=== PATIENT | female | born 1995 | race Caucasian/White ===

== ENCOUNTER 2021-07-23 17:50 | Emergency (ER) | payer SELFPAY ==
[~2021-07-23] VITALS: Ht 175 cm; Wt 92.0 kg
--- NOTE | 2021-07-23 18:36 | ED Cough/URI ---
General Chief Complaint: Cough/Cold/Flu Symptoms Stated Complaint: HEADACH, COUGH, CONGESTION Nursing Triage Note: PT TO ED FOR COUGH, CONGESTION, AND SINUS PRESSURE THAT GOT WORSE TWO DAYS AGO. ABOUT A WEEK AGO SHE WAS GIVEN AN ANTIBIOTIC AND IT HELPED FOR A BIT BUT RECENTLY WORSENED. PT AMB. TO ROOM 10 WITHOUT DIFFICULTY. Source: patient Exam Limitations: no limitations History of Present Illness Date Seen by Provider: July 23, 2021 Time Seen by Provider: 18:34 Initial Comments Patient is a 26 year old female who presents with sinus pressure and cough for the past two days, Patient reports head pain with diffuse pressure. Associated right ear pain. She reports a wet cough without shortness of breath or wheezing. Denies taking any medication at home. Not up to date on her covid and flu vaccine. Allergies and Home Medications Patient Home Medication List Home Medication List Reviewed: Yes Amoxicillin/Potassium Clav (Amox Tr-K Clv 875-125 mg Tab) 875 Mg-125 Mg Tablet, 1 EACH PO BID Prescribed by: SILVESTRE DENT on 07/23/211924 Benzonatate (Tessalon Perles) 100 Mg Capsule, 100 MG PO TID PRN for cough Prescribed by: SILVESTRE DENT on 07/23/211924 Review of Systems Review of Systems Constitutional: No chills, No diaphoresis, No malaise, No weakness EENTM: ear pain, nose congestion; No ear discharge, No eye pain, No throat pain, No throat swelling Respiratory: cough; No short of breath Cardiovascular: No chest pain, No palpitations Gastrointestinal: No abdominal pain, No diarrhea, No nausea, No vomiting Genitourinary: No decreased output, No discharge Musculoskeletal: No gout, No joint pain Skin: No change in color All Other Systems Reviewed Negative Unless Noted: Yes Past Rkcmkyl-Fcswlg-Iihkhe Hx Patient Social History Tobacco Use?: Yes Use of E-Cig and/or Vaping dev: Yes E-Cig or Vaping type used: Nicotine Use of E-Cig and/or Vaping Bob: Current Everyday User Substance use?: No Alcohol Use?: No Pt feels they are or have been: Unable to obtain Immunizations Up To Date First/Initial COVID19 Vaccinat: 2020 COVID19 Vaccine Tandem Operator: KOJO Past Medical History Surgery/Hospitalization HX: PMH;MTHFR BLOOD DISORDER. SURGERY;GASTRIC BYPASS 2020, PARTIAL HYST. 2020, GALLBLADDER REMOVAL 2020, SLEEVE SURGERY 11/2018, AND TONSILECTOMY 2001. Physical Exam Vital Signs - First Documented 07/23/21 18:02 Temp 36.9 Pulse 88 Resp 18 B/P (MAP) 123/85 (98) Pulse Ox 99 O2 Delivery Room Air Capillary Refill : Less Than 3 Seconds Height: '" Weight: lbs. oz. kg; 30.00 BMI Method: General Appearance: WD/WN, no apparent distress Eyes: Bilateral Eye Normal Inspection, Bilateral Eye PERRL, Bilateral Eye EOMI HEENT: PERRL/EOMI, other (Right TM with erythema and mild bulging without perforation. Left TM clear. Maxillary and frontal sinus tenderness. Oropharynx pain without erythema, swelling, exudate) Neck: non-tender, full range of motion, supple, normal inspection Respiratory: chest non-tender, lungs clear, normal breath sounds, no respiratory distress Cardiovascular: regular rate, rhythm, no edema, no gallop, no JVD Gastrointestinal: normal bowel sounds, non tender, soft, no organomegaly Extremities: normal range of motion, non-tender, normal inspection Skin: normal color, warm/dry Progress/Results/Core Measures Suspected Sepsis SIRS Temperature: Pulse: 88 Respiratory Rate: 18 Blood Pressure 123 /85 Mean: 98 Results/Orders Lab Results Laboratory Tests Test 07/23/21 18:17 Range/Units Influenza Type A (RT-PCR) Not Detected Not Detecte Influenza Type B (RT-PCR) Not Detected Not Detecte SARS-CoV-2 RNA (RT-PCR) Not Detected Not Detecte My Orders Orders - SHERRIE LEDESMA Covid 19 Inhouse Test (07/23/21 18:14) Influenza A And B By Pcr (07/23/21 18:14) Chest 1 View, Ap/Pa Only (07/23/21 18:27) Vital Signs/I&O 07/23/21 07/23/21 18:02 19:28 Temp 36.9 Pulse 88 78 Resp 18 16 B/P (MAP) 123/85 (98) 111/75 Pulse Ox 99 99 O2 Delivery Room Air Room Air Capillary Refill : Less Than 3 Seconds Blood Pressure Mean: 98 Departure Communication (PCP) Right TM with mild erythema concerning for otitis media. Does report right ear pain. She reports cough and sinus pressure. History of sinus infection. She does have some maxillary and frontal sinus tenderness. Likely more viral in nature. Oropharynx pain. Chest x-ray unremarkable. COVID and influenza negative. Will discharge with Augmentin as she states she was on amoxicillin last week did improve her symptoms that were very similar. History of sinus infection. Recommend Flonase, Mucinex, Zyrtec, Sudafed. Recommend follow-up with PCP in 2 to 3 days for reevaluation. If any worsening symptoms return back to ED for further evaluation. Stable vital signs. Impression Primary Impression: Otitis media Disposition: HOME, SELF-CARE Condition: Stable Departure-Patient Inst. Decision time for Depature: 19:23 Referrals: NO,LOCAL PHYSICIAN (PCP/Family) Primary Care Physician Patient Instructions: Ear Infections (Otitis Media) in Adults (DC) Scripts Benzonatate (TESSALON PERLES) 100 Mg Capsule 100 MG PO TID PRN for cough, #16 CAP Prov: SHERRIE LEDESMA 07/23/21 Amoxicillin/Potassium Clav (Amox Tr-K Clv 875-125 mg Tab) 875 Mg-125 Mg Tablet 1 EACH PO BID for 7 Days, #14 TAB Prov: SHERRIE LEDESMA 07/23/21 Work/School Note: Work Release Form Date Seen in the Emergency Department: July 23, 2021 Return to Work: July 26, 2021 SHERRIE LEDESMA July 23, 2021 18:36
--- NOTE | 2021-07-23 18:49 | Diagnostic Imaging Report ---
EXAMINATION: Chest radiograph, portable AP view. DATE: 07/23/2021 6:45 PM INDICATION: 26-year-old female, cough. COMPARISON: None. FINDINGS: Heart size and mediastinal contours are unremarkable. There is no identified pneumothorax. There is no large pleural effusion. There is no identified focal airspace consolidation. IMPRESSION: 1. No identified acute cardiopulmonary abnormality. Dictated by: Dictated on workstation # [id number]
[2021-07-23] MEDS ORDERED: BENZ100C18 PO (19:25)
[2021-07-23] MEDS ORDERED: AMOX1TAB12 PO (19:25)
[2021-07-23 19:28] VITALS: BP 111/75
== END 2021-07-23 19:30 | disposition home or self-care (01) ==
LOC: ER 17:59
DX: H66.91 Otitis media, unspecified, right ear (principal); J34.89 Other specified disorders of nose and nasal sinuses; F17.290 Nicotine dependence, other tobacco product, uncomplicated; Z20.822 Contact with and (suspected) exposure to COVID-19; Z28.311 Partially vaccinated for COVID-19
CPT/HCPCS: 71045; 87636

== ENCOUNTER 2021-07-27 13:09 | Emergency (ER) | payer MEDICAID ==
[~2021-07-27] VITALS: Ht 175 cm; Wt 92.0 kg
[~2021-07-27 13:09] MED LIST: AMOX1TAB12 PO; BENZ100C18 PO
--- NOTE | 2021-07-27 13:25 | ED Lower Extremity ---
General Chief Complaint: Foreign Body Stated Complaint: L FOOT FISH HOOK Source: patient Exam Limitations: no limitations History of Present Illness Date Seen by Provider: July 27, 2021 Time Seen by Provider: 13:20 Initial Comments Patient is a 26-year-old female presents ED with a fishhook in her left lower foot on the lateral side. She states around 1230 she stepped on a hook. Attempted to remove with pillars at home but was unsuccessful. Denies of any swelling, bruising, fever, chills. Not up-to-date her tetanus Allergies and Home Medications Allergies Coded Allergies: No Known Drug Allergies (Unverified , 07/27/21) Patient Home Medication List Home Medication List Reviewed: Yes Amoxicillin/Potassium Clav (Amox Tr-K Clv 875-125 mg Tab) 875 Mg-125 Mg Tablet, 1 EACH PO BID Prescribed by: SILVESTRE DENT on 07/23/211924 Benzonatate (Tessalon Perles) 100 Mg Capsule, 100 MG PO TID PRN for cough Prescribed by: SILVESTRE DENT on 07/23/211924 Review of Systems Constitutional: No chills, No diaphoresis, No malaise, No weakness EENTM: No blurred vision, No double vision, No hoarseness, No mouth pain, No mouth swelling Respiratory: No cough, No dyspnea on exertion, No short of breath Cardiovascular: No chest pain Gastrointestinal: No abdominal pain, No nausea, No vomiting Genitourinary: No decreased output, No discharge Musculoskeletal: No back pain, No joint pain Skin: other ([place] in left) All Other Systems Reviewed Negative Unless Noted: Yes Past Bayapjt-Uphljt-Qubpxt Hx Immunizations Up To Date First/Initial COVID19 Vaccinat: 2020 Past Medical History Surgery/Hospitalization HX: PMH;MTHFR BLOOD DISORDER. SURGERY;GASTRIC BYPASS 2020, PARTIAL HYST. 2020, GALLBLADDER REMOVAL 2020, SLEEVE SURGERY 11/2018, AND TONSILECTOMY 2001. Physical Exam Vital Signs Vital Signs - First Documented 07/27/21 13:15 Temp 36.8 Pulse 79 Resp 18 B/P (MAP) 110/75 (87) Pulse Ox 98 O2 Delivery Room Air Capillary Refill : Height, Weight, BMI Height: '" Weight: lbs. oz. kg; 30.00 BMI Method: General Appearance: WD/WN, no apparent distress HEENT: PERRL/EOMI, normal ENT inspection, TMs normal, pharynx normal Neck: non-tender, full range of motion, supple, normal inspection Cardiovascular: regular rate, rhythm, no edema, no gallop, no JVD Respiratory: chest non-tender, lungs clear, normal breath sounds, no respiratory distress, no accessory muscle use Gastrointestinal: normal bowel sounds, non tender, soft, no organomegaly Back: normal inspection, no CVA tenderness Feet: left foot other ([place] in left lateral foot puncture) Neurologic/Psychiatric: wireless construction manager II-XII nml as tested, no motor/sensory deficits, alert, normal mood/affect, oriented x 3 Skin: other (Small fishhook in left lateral foot) Procedures/Interventions I&D : Progress 1% lidocaine injected around the fishhook of left lateral foot. 1 mL was used. 11 inch blade was used to make a small incision around the hook . Successful removal of hook. No surrounding redness or swelling. Patient tolerated procedure well. Prepped with Betadine. Provided consent for procedure Progress/Results/Core Measures Results/Orders My Orders Orders - SHERRIE LEDESMA Dipht,Pertuss(Acell),Tet Adult (Boostrix (07/27/21 13:30) Dipht,Pertuss(Acell),Tet Adult (Boostrix (07/27/21 13:30) Medications Given in ED Current Medications Medications Dose Ordered Sig/Shahram Route Start Time Stop Time Status Last Admin Dose Admin Diphtheria/ Tetanus/Acell Pertussis 0.5 ml ONCE ONCE IM 07/27/21 13:30 07/27/21 13:31 DC 07/27/21 13:33 0.5 ML Vital Signs/I&O 07/27/21 07/27/21 13:15 13:40 Temp 36.8 36.8 Pulse 79 76 Resp 18 18 B/P (MAP) 110/75 (87) 110/75 Pulse Ox 98 98 O2 Delivery Room Air Room Air Departure Communication (PCP) Successful removal of fishhook. Patient was updated on her tetanus. Discussed Neosporin and wound care. If any redness or swelling to develop to return back to ED for antibiotics. Wound appears clean. Impression Primary Impression: Fish hook in foot Disposition: HOME, SELF-CARE Condition: Stable Departure-Patient Inst. Decision time for Depature: 13:25 Referrals: NO,LOCAL PHYSICIAN (PCP/Family) Primary Care Physician Patient Instructions: Foreign Body in Skin SHERRIE LEDESMA July 27, 2021 13:25
[2021-07-27] MEDS ORDERED: TETANUS,DIPTH,PERTUSS P/F (BOOSTRIX) 0.5 ML VIAL IM ONE ×2 (13:30)
[2021-07-27 13:40] VITALS: BP 110/75
== END 2021-07-27 13:39 | disposition home or self-care (01) ==
LOC: EDUNIT# 13:09 → ER 13:11
DX: S91.342A Puncture wound with foreign body, left foot, initial encounter (principal); Z23 Encounter for immunization; W45.8XXA Other foreign body or object entering through skin, initial encounter
CPT/HCPCS: 90715; 99284